=== PATIENT | male | born 1970 ===

== ENCOUNTER 2018-11-06 13:51 | Emergency (ER) | payer OTHER ==
[2018-11-06 13:58] VITALS: BP 139/93
--- NOTE | 2018-11-06 14:15 | UC ---
Hand/Wrist HPI - HPI Summary HPI Summary: 2 days ago injured R index in tractor door and the DIP JOINT HAS BEEN SWELLING AND WORSENING. Does not feel much pain but is losing the use of the tip of his finger. - History Of Current Complaint Chief Complaint: UCUpperExtremity Stated Complaint: FINGER INJURY Time Seen by Provider: 11/06/18 13:56 Hx Obtained From: Patient Onset/Duration: Sudden Onset Pain Intensity: 0 Pain Scale Used: 0-10 Numeric Character Of Pain: Throbbing Aggravating Factor(s): Movement Alleviating Factor(s): Nothing Associated Signs And Symptoms: Positive: Swelling, Redness, Weakness. Negative : Bruising, Numbness/Tingling - Allergies/Home Medications Allergies/Adverse Reactions: Allergies Allergy/AdvReac Type Severity Reaction Status Date / Time No Known Allergies Allergy Verified 11/06/18 13:58 Home Medications: Home Medications NK [No Home Medications Reported] 11/06/18 [History Confirmed 11/06/18] PMH/Surg Hx/FS Hx/Imm Hx - Additional Past Medical History Additional PMH: no chronic issues. Previously Healthy: Yes - Surgical History Surgical History: None - Family History Known Family History: Positive: Non-Contributory - Social History Alcohol Use: Occasionally Substance Use Type: None Smoking Status (MU): Never Smoked Tobacco Review of Systems All Other Systems Reviewed And Are Negative: Yes Constitutional: Negative: Fever Skin: Positive: Bruising - R index. Negative: Rash Respiratory: Positive: Negative Cardiovascular: Positive: Negative Musculoskeletal: Positive: Decreased ROM - DIP OF R INDEX Neurological: Positive: Weakness - R index. Negative: Paresthesia, Numbness Physical Exam Triage Information Reviewed: Yes Appearance: Well-Appearing Vital Signs: Initial Vital Signs Temp 97.8 F 11/06/18 13:52 Pulse 100 11/06/18 13:52 Resp 20 11/06/18 13:52 BP 139/93 11/06/18 13:52 Pulse Ox 100 11/06/18 13:52 Vital Signs Reviewed: Yes Respiratory Exam: Normal Cardiovascular Exam: Normal Cardiovascular: Positive: Brisk Capillary Refill - at R fingers Musculoskeletal: Positive: Other: - R INDEX: DIP joint with flexion deformity at rest. NO active extension. blood at nail bed. nontender. Diagnostics - Radiology No standard instances Radiology Interpretation Completed By: Radiologist Summary of Radiographic Findings: IMPRESSION: DISPLACED INTRA-ARTICULAR FRACTURE DORSAL BASE OF THE DISTAL PHALANX. Hand/Wrist Course/Dx - Course Course Of Treatment: R index finger injury. XRAY SHOWED: IMPRESSION: DISPLACED INTRA-ARTICULAR FRACTURE DORSAL BASE OF THE DISTAL PHALANX. he declined pain meds and work note but they were offered. we were able to splint using stack type and he should see hand specialist w/in the next few days. good cap refill at fingers. - Differential Dx/Diagnosis Differential Diagnosis/HQI/PQRI: Fracture, Sprain, Strain, Tendonitis, Tenosynovitis Provider Diagnosis: Fracture of phalanx of index finger Discharge - Sign-Out/Discharge Documenting (check all that apply): Patient Departure All imaging exams completed and their final reports reviewed: Yes - Discharge Plan Condition: Good Disposition: HOME Patient Education Materials: Finger Fracture (ED) Referrals: Bertha Knapp MD [Medical Doctor] - Additional Instructions: You do have a fracture and we would like youto follow up with the hand specialist. - Billing Disposition and Condition Condition: GOOD Disposition: Home - Attestation Statements Provider Attestation: Per institutional requirements, I have reviewed the chart, how.. I did not personally evaluate, interact with , or disposition this patient.
== END 2018-11-06 15:08 | disposition home or self-care (01) ==
LOC: UCEAST 13:51
DX: S62.630A Displaced fracture of distal phalanx of right index finger, initial encounter for closed fracture (principal); V84.4XXA Person injured while boarding or alighting from special agricultural vehicle, initial encounter; Y93.89 Activity, other specified; Y92.79 Other farm location as the place of occurrence of the external cause; Y99.8 Other external cause status
CPT/HCPCS: 73140; 99212; G0463